=== PATIENT | male | born 1995 | race Hispanic/Latino ===

== ENCOUNTER 2018-06-25 11:00 | Emergency (ER) | payer OTHER, SELFPAY | END 2018-06-25 11:08 | disposition home or self-care (01) | LOC: BURERS 11:00 | DX: S16.1XXA Strain of muscle, fascia and tendon at neck level, initial encounter (principal); V49.9XXA Car occupant (driver) (passenger) injured in unspecified traffic accident, initial encounter | CPT/HCPCS: 99281 ==